=== PATIENT | female | born 1935 | race Caucasian/White ===

== ENCOUNTER 2016-12-16 07:50 | Emergency (ER) | payer MEDICARE, BC ==
[~2016-12-16 07:50] MED LIST: *UNABLE1; *UNABLE3; ACIDOPHILU1 PO; ADVAIR100 INH; ADVAIR250 INH; ALFALFA PO; AMINO ACID PO; AMOXIL875 MG PO; ASAB PO; ATV.5 PO; ATV1 PO; B150 PO; BENTYL10 PO; BLOOD PRESSURE RX PO; BRILINTA90 MG PO; CAL-MAG; CAL-MAG-ZINC PO; CELEXA20 PO; CELEXA40 MG PO; CHROMIUM PO; CIP5 PO; CLARIT10 PO; CODEINE COUGH SYRUP; COQ10100 MG OR; COREG3 PO; COREG6 PO; CRESTOR10 PO; CRESTOR5 MG PO; DEX4 PO; DSS PO; ESTER C PO; EYE VITAMIN; FISH-EPA1000 MG PO; FLEX PO; FLONASE NAS; FOLIC PO; HARD NAILS OR; HARD NAILS PO; LEVAQUIN750 MG PO; LEVOTHYROXIN50 MCG PO; LIPITOR10 PO; LOVASTATIN; MATURE MULTI; MELATONIN1 M1 PO; METAMUCIL CAN7 OZ PO; MEVACOR PO; MEVACOR40 MG PO; MULTIPLE VIT PO; MULTIVIT/MIN PO; MYCOSCROI TOP; MYCOSCROI VA; NAMENDA5 PO; NIACIN PO; NORCO1 TA1 PO; NORCO1 TAB PO; NORV25 PO; NORV5 PO; NYSTOP100000 MG TOP; OS500+D PO; P10 PO; PARAFON FORTE500 MG OR; PCET PO; PLAVIX PO; PREMARIN TOP; PRESERVISION PO; PRIN10 PO; PRIN5 PO; PROCTOSOL HC2.5 % RE; PROMEGA PO; PROZAC40 MG PO; SOYA LECITHN1200 MG OR; SUPER B-100 PO; SYN.05 PO; T PO; THERA MULTI1 ML PO; TOPXL25 PO; TRAVATAN Z0.004 % OPH; TRAZ100 PO; TRAZ50 PO; VIT B-SIX 50 MG50 MG OR; VITAMIN B-121000 MC1 SL; VITAMIN D1000 UNI1 PO; VITAMINS; VITC500 PO; VOLTAREN1 % TOP; VOTRIENT200 MG PO; XALAT OPH; XANAX XR0.5 MG PO; XOPENEX HFA INH; XOPENEX1.25 MG/3 INH; [UNRECOGNIZED DRUG - OTHER]; [UNRECOGNIZED DRUG - OTHER] PO; [UNRECOGNIZED DRUG - OTHER] PO; [UNRECOGNIZED DRUG - OTHER] PO; [UNRECOGNIZED DRUG - OTHER] PO; [UNRECOGNIZED DRUG - REMARK]
[2016-12-16 09:30] LABS: BASOPHILS 0.4 %; BASOPHILS ABSOLUTE 0.02 10/3/uL (0.0-0.16); EOSINOPHILS 6.6 %; EOSINOPHILS ABSOLUTE 0.35 10/3/uL (0.0-0.53); ER CBC TAT 0 Hrs 03 Mins; HEMOGLOBIN 12.2 g/dL (12.0-16.0); IMMATURE GRANULOCYTES 0.2 %; IMMATURE GRANULOCYTES ABSOLUTE 0.01 10/3/uL (0.0-0.11); LYMPHOCYTES 36.9 %; LYMPHOCYTES ABSOLUTE 1.95 10/3/uL (0.67-4.30); MEAN CORPUS HGB CONC 34.2 g/dL (32.0-36.0); MEAN CORPUSCULAR HEMOGLOB 35.1 pg (26.0-34.0); MEAN CORPUSCULAR VOLUME 102.6 fL (80-100); MEAN PLATELET VOLUME 9.3 fL (9.2-13.0); MONOCYTES 14.2 %; MONOCYTES ABSOLUTE 0.75 10/3/uL (0.21-1.20); NEUTROPHILS 41.7 %; PLATELET COUNT 235 10/3/uL (150-400); RBC DISTRIBUTION WIDTH 13.3 % (12.0-16.0); RED CELL COUNT 3.48 10/6/uL (4.0-5.6); WHITE BLOOD CELLS 5.3 10/3/uL (4.5-10.5)
[2016-12-16 09:33] LABS: HEMATOCRIT 35.7 % (36.0-48.0); MANUAL DIFF NO %
[2016-12-16 09:39] LABS: INTERNATIONAL NORMAL RATI 1.1 UNITS (-); PROTIME (NOT ORD) 13.9 SEC (12.0-14.5)
[2016-12-16 09:46] LABS: CALCIUM, SERUM 8.5 MG/DL (8.5-10.4); CHEST PAIN PROFILE TAT 0 Hrs 19 Mins; CHLORIDE, SERUM 105 MMOL/L (96-112); GFR AFRICAN AMERICAN 50 ML/MIN (>=60); GFR NON AFRICAN AMERICAN 43 ML/MIN (>=60); GLUCOSE, SERUM 98 MG/DL (60-99); SODIUM, SERUM 140 MMOL/L (135-148); TROPONIN I <0.02 NG/ML (<0.05)
[2016-12-16 09:47] LABS: BUN (BLOOD UREA NITROGEN) 23 MG/DL (6-23); CO2 (CARBON DIOXIDE) 26 MMOL/L (24-34); POTASSIUM, SERUM 3.8 MMOL/L (3.5-5.3)
[2017-02-27] MEDS ORDERED: COZ25 PO (11:28)
[2017-02-27] MEDS ORDERED: NEUR300 PO (11:41)
[2017-02-27] MEDS ORDERED: VITAMIN D31000 UNIT PO (11:42)
[2017-02-27] MEDS ORDERED: [UNRECOGNIZED DRUG - OTHER] (11:46)
[2017-02-27] MEDS ORDERED: HEMA-PLEX (11:50)
[2017-02-27] MEDS ORDERED: CLARIT10 PO (11:52)
[2017-02-27] MEDS ORDERED: TYLENOL PO (11:52)
[2017-02-27] MEDS ORDERED: MEDS (11:58)
== END 2016-12-16 11:15 | disposition home or self-care (01) ==
LOC: ER 07:50
PROVIDERS: Emergency Medicine
DX: M25.512 Pain in left shoulder (principal); I25.2 Old myocardial infarction; E11.22 Type 2 diabetes mellitus with diabetic chronic kidney disease; N18.9 Chronic kidney disease, unspecified; Z95.5 Presence of coronary angioplasty implant and graft; Z85.528 Personal history of other malignant neoplasm of kidney; Z88.0 Allergy status to penicillin; Z88.2 Allergy status to sulfonamides; Z88.8 Allergy status to other drugs, medicaments and biological substances; Z79.82 Long term (current) use of aspirin; Z79.899 Other long term (current) drug therapy
CPT/HCPCS: 71010; 80048; 83735; 84484; 85025; 85610; 85730; 93005; 99284

== ENCOUNTER 2017-03-01 14:22 | Day surgery (SDC) | payer MEDICARE, BC ==
--- NOTE | ~2017-03-01 | EGD ---
EGD REPORT [facility] [address] [place] [id number] NAME: ALEIDA DUBON : 39 STATUS : REG [facility] PAT#: [id number] AGE: 82 ADM/REG DATE : 03/01/17 MR#: [id number] REPORT SERV DATE: 03/01/17 DICTATED BY: WILLIE QUIROGA DATE: 03/01/17 REPORT STATUS : Draft TRANSCRIBED BY: [facility] DATE: 03/01/17 Endoscopy Center Patient Name: Aleida Dubon Date of : 1935 Attending MD: WILLIE QUIROGA MD Procedure Date No Time: 03/01/2017 Procedure: Colonoscopy Indications: High risk colon cancer surveillance: Personal history of non-advanced adenoma Referring MD: RICCARDO WHITEHEAD MD Medicines: Propofol per Anesthesia Complications: No immediate complications. Procedure: Pre-Anesthesia Assessment: - ASA Grade Assessment: III - A patient with severe systemic disease. After I obtained informed consent, the scope was passed under direct vision. Throughout the procedure, the patient's blood pressure, pulse, and oxygen saturations were monitored continuously. The PCF [id number] was introduced through the anus and advanced to the cecum, identified by appendiceal orifice and ileocecal valve. The colonoscopy was performed without difficulty. The patient tolerated the procedure well. The quality of the bowel preparation was good. Findings: The perianal and digital rectal examinations were normal. Multiple small-mouthed diverticula were found in the sigmoid colon. Internal hemorrhoids were found during retroflexion and were Grade I (internal hemorrhoids that do not prolapse). Impression: - Diverticulosis in the sigmoid colon. - Internal hemorrhoids. Recommendation: - Patient has a contact number available for emergencies. The signs and symptoms of potential delayed complications were discussed with the patient. Return to normal activities tomorrow. Written discharge instructions were provided to the patient. - High fiber diet indefinitely. - Continue present medications. - Repeat colonoscopy is not recommended for surveillance. Procedure Code(s): --- Professional --- 83092, Colonoscopy, flexible, proximal to splenic EGD REPORT [facility] [address] [place]. [address] NAME: ALEIDA DUBON : [birth year] STATUS : REG [facility] PAT#: [id number] AGE: 82 ADM/REG DATE : 03/01/17 MR#: [id number] REPORT SERV DATE: 03/01/17 DICTATED BY: WILLIE QUIROGA. DATE: 03/01/17 REPORT STATUS : Draft TRANSCRIBED BY: [employer] DATE: 03/01/17 flexure; diagnostic, with or without collection of specimen(s) by brushing or washing, with or without colon decompression (separate procedure) Diagnosis Code(s): --- Professional --- K64.0, First degree hemorrhoids K57.30, Diverticulosis of large intestine without perforation or abscess without bleeding Z86.010, Personal history of colonic polyps CPT copyright 2013 [employer]. All rights reserved. The codes documented in this report are preliminary and upon belt sewer review may be revised to meet current compliance requirements. WILLIE QUIROGA MD 03/01/2017 4:20 PM This report has been signed electronically. Number of Addenda: 0 Note Initiated On: 03/01/2017 4:02 PM [facility] [place] [address]
[~2017-03-01 14:22] MED LIST changes: +COZ25 PO; +HEMA-PLEX; +MEDS; +NEUR300 PO; +TYLENOL PO; +VITAMIN D31000 UNIT PO; +[UNRECOGNIZED DRUG - OTHER]
== END 2017-03-01 23:59 | disposition home or self-care (01) ==
LOC: DMU 14:22
PROVIDERS: Internal Medicine Gastroenterology
PROC: 0DJD8ZZ Inspection of Lower Intestinal Tract, Via Natural or Artificial Opening Endoscopic (ICD-10-PCS; principal; 2017-03-01 15:00)
DX: Z12.11 Encounter for screening for malignant neoplasm of colon (principal); K64.0 First degree hemorrhoids; K57.30 Diverticulosis of large intestine without perforation or abscess without bleeding; E11.9 Type 2 diabetes mellitus without complications; I10 Essential (primary) hypertension; I25.10 Atherosclerotic heart disease of native coronary artery without angina pectoris; M41.9 Scoliosis, unspecified; E03.9 Hypothyroidism, unspecified; F41.9 Anxiety disorder, unspecified; K57.92 Diverticulitis of intestine, part unspecified, without perforation or abscess without bleeding; F32.9 Major depressive disorder, single episode, unspecified; J45.909 Unspecified asthma, uncomplicated; Z95.5 Presence of coronary angioplasty implant and graft; Z86.010 Personal history of colon polyps; Z85.528 Personal history of other malignant neoplasm of kidney; Z85.118 Personal history of other malignant neoplasm of bronchus and lung; Z85.841 Personal history of malignant neoplasm of brain; Z90.710 Acquired absence of both cervix and uterus; Z98.891 History of uterine scar from previous surgery; Z90.49 Acquired absence of other specified parts of digestive tract; Z91.5 Personal history of self-harm; Z95.1 Presence of aortocoronary bypass graft; Z90.5 Acquired absence of kidney; Z88.0 Allergy status to penicillin; Z88.2 Allergy status to sulfonamides; Z91.02 Food additives allergy status; Z88.8 Allergy status to other drugs, medicaments and biological substances; Z79.899 Other long term (current) drug therapy; Z79.891 Long term (current) use of opiate analgesic; Z79.82 Long term (current) use of aspirin
CPT/HCPCS: 82962